=== PATIENT | female | born 1990 | race African-American/Black ===

== ENCOUNTER 2016-10-14 16:36 | Emergency (ER) | payer MEDICAID ==
[~2016-10-14] VITALS: Ht 160 cm; Wt 65.0 kg
[~2016-10-14 16:36] MED LIST: PREN-88 PO
[2016-10-14 23:24] LABS: BASOPHILS % 0.9 % (0.0-2.0); DIFFERENTIAL COMMENT 0; EOSINOPHILS % 2.7 % (0.0-5.0); HEMATOCRIT. 34.4 % (36.0-48.0); HEMOGLOBIN. 10.9 g/dL (12.0-16.0); LYMPHOCYTES % 43.5 % (20.0-50.0); MEAN CORPUSCULAR HEMOGLOBIN 24.1 pg (28.0-32.0); MEAN CORPUSCULAR HGB CONC 31.8 g/dL (31.0-37.0); MEAN PLATELET VOLUME 8.6 fl (7.4-10.4); MONOCYTES % 7.1 % (2.0-8.0); NEUTROPHILS % 45.8 % (40.0-76.0); PLATELET 189 x1000/uL (130-400); RED BLOOD CELL COUNT 4.52 mill/uL (4.2-5.4); RED CELL DISTRIBUTION WIDTH 17.5 % (11.6-14.6); WHITE BLOOD COUNT 6.8 x1000/uL (4.5-11.0)
[2016-10-14 23:32] LABS: INR 1.1; PROTHROMBIN TIME 11.4 sec
[2016-10-14 23:37] LABS: ALANINE AMINOTRANSFERASE 16 IU/L (13-61); ALBUMIN 3.6 g/dL (3.4-5.0); ANION GAP 10; CALCIUM 8.4 mg/dL (8.5-10.1); CARBON DIOXIDE 27 mEq/L (21-32); CHLORIDE 107 mEq/L (98-107); INDEX HEMOLYSI 1 (1-3); INDEX ICTERIC 1 (1-4); INDEX LIPEMIC 1 (1-3); LIPASE 89 IU/L (73-393); UREA NITROGEN BLOOD 10 mg/dL (7-21); eGFR > 60 mL/min (>60)
[2016-10-14 23:47] LABS: CLARITY URINE CLOUDY (CLEAR); COLOR URINE DARK YELLOW (YELLOW); GLUCOSE URINE NEGATIVE (NEGATIVE); KETONES URINE 1+ (NEGATIVE); LEUKOCYTE ESTERASE URINE 1+ (NEGATIVE); NITRITE URINE NEGATIVE (NEGATIVE); OCCULT BLOOD URINE 3+ (NEGATIVE); PH URINE 5.5 (4.5-8.0); PROTEIN URINE 1+ (NEGATIVE); SPECIFIC GRAVITY URINE 1.039 (1.005-1.030)
[2016-10-14] MEDS: ACETAMINOPHEN 325MG TABLET PO STA (23:47)
[2016-10-14] MEDS: MAGNESIUM/ALUMINUM HYDROXIDE/SIMETHICONE 30ML UDC PO STA (23:47)
[2016-10-14] MEDS: ONDANSETRON 4MG ODT PO STA (23:47)
[2016-10-15 00:04] LABS: RBC URINE 50-100 /hpf (0-2); WBC URINE 15-25 /hpf (0-2)
[2016-10-15 00:05] LABS: BACTERIA URINE 2+; SQUAMOUS EPITHELIAL CELL URINE 2+ /lpf (RARE/1+)
[2016-10-15 00:07] LABS: *BARBITURATES SCREEN URINE NEGATIVE (NEGATIVE); *BENZODIAZEPINES SCREEN URINE NEGATIVE (NEGATIVE); *COCAINE SCREEN URINE NEGATIVE (NEGATIVE); ECSTASY MDMA SCREEN URINE NEGATIVE (NEGATIVE); METHADONE URINE SCREEN NEGATIVE (NEGATIVE); OPIATES URINE SCREEN NEGATIVE (NEGATIVE); PHENCYCLIDINE URINE SCREEN NEGATIVE (NEGATIVE)
[2016-10-15 00:27] LABS: *AMPHETAMINES SCREEN URINE PRESUMTIVE POSITIVE (NEGATIVE); CANNABINOID URINE SCREEN PRESUMTIVE POSITIVE (NEGATIVE)
[2016-10-15 00:32] VITALS: BP 117/64
[2016-10-15] MEDS: IBUPROFEN 400MG TABLET PO ONE (00:32)
== END 2016-10-15 00:35 | disposition home or self-care (01) ==
LOC: ER 16:37
DX: N39.0 Urinary tract infection, site not specified (principal); F17.200 Nicotine dependence, unspecified, uncomplicated; F12.10 Cannabis abuse, uncomplicated; Z98.890 Other specified postprocedural states
CPT/HCPCS: 36415; 76830; 76856; 80053; 80305; 81001; 81025; 83690; 85025; 85610; 99285; Q0162; Z7610

== ENCOUNTER 2018-03-27 01:05 | Emergency (ER) | payer MEDICAID ==
[~2018-03-27] VITALS: Ht 160 cm; Wt 63.8 kg
[2018-03-27] MEDS ORDERED: KETOROLAC 60MG/2ML VIAL IM STA (04:44)
[2018-03-27] MEDS ORDERED: TETANUS, DIPHTHERIA, PERTUSSIS VAC/PF 0.5ML (>7YR OLD) IM ONE (04:45)
[2018-03-27 04:48] LABS: CLARITY URINE CLOUDY (CLEAR); COLOR URINE YELLOW (YELLOW); KETONES URINE TRACE (NEGATIVE); LEUKOCYTE ESTERASE URINE 1+ (NEGATIVE); NITRITE URINE NEGATIVE (NEGATIVE); OCCULT BLOOD URINE NEGATIVE (NEGATIVE); PH URINE 5.5 (4.5-8.0); PROTEIN URINE NEGATIVE (NEGATIVE); SPECIFIC GRAVITY URINE 1.026 (1.005-1.030); UROBILINOGEN URINE 0.2 E.U./dL (0.2-1.0)
[2018-03-27] MEDS ORDERED: BACITRACIN ZINC OINT UDPKT TOP ONE (05:00)
[2018-03-27 05:10] VITALS: BP 112/68
== END 2018-03-27 07:57 | disposition home or self-care (01) ==
LOC: ER 07:34
DX: S61.255A Open bite of left ring finger without damage to nail, initial encounter (principal); M54.9 Dorsalgia, unspecified; N39.0 Urinary tract infection, site not specified; Y04.1XXA Assault by human bite, initial encounter; Y93.89 Activity, other specified; Y92.89 Other specified places as the place of occurrence of the external cause; Y99.8 Other external cause status; Z98.890 Other specified postprocedural states
CPT/HCPCS: 72100; 73130; 81003; 81025; 90471; 90715; 96372; 99285; J1885

== ENCOUNTER 2018-04-06 02:44 | Emergency (ER) | payer SELFPAY ==
[~2018-04-06] VITALS: Ht 157.5 cm; Wt 63.0 kg
[2018-04-06 03:13] VITALS: BP 115/77
[2018-04-06] MEDS ORDERED: ACETAMINOPHEN 325MG TABLET PO ONE (09:15)
[2018-04-06] MEDS ORDERED: AMOXICILLIN/POTASSIUM CLAVULANATE 875/125MG TAB PO ONE (09:30)
== END 2018-04-06 09:52 | disposition home or self-care (01) ==
LOC: ER 02:44
DX: M79.645 Pain in left finger(s) (principal); R03.0 Elevated blood-pressure reading, without diagnosis of hypertension; Z98.890 Other specified postprocedural states; W22.03XA Walked into furniture, initial encounter; Y93.89 Activity, other specified; Y92.018 Other place in single-family (private) house as the place of occurrence of the external cause
CPT/HCPCS: 29130; 73140; 81025; 99284

== ENCOUNTER 2018-06-22 00:46 | Emergency (ER) | payer MEDICAID ==
[~2018-06-22] VITALS: Ht 160 cm; Wt 66.8 kg
[2018-06-22] MEDS ORDERED: KETOROLAC 30MG/ML VIAL IV STA (01:25)
[2018-06-22] MEDS ORDERED: ONDANSETRON HCL 4MG/2ML INJ IV STA (01:25)
[2018-06-22] MEDS ORDERED: SODIUM CHLORIDE 0.9% 1000ML BAG (SEPSIS BOLUS) IV ONE (01:30)
[2018-06-22 02:03] LABS: BASOPHILS % 0.6 % (0.0-2.0); EOSINOPHILS % 3.5 % (0.0-5.0); HEMATOCRIT. 33.6 % (36.0-48.0); HEMOGLOBIN. 10.6 g/dL (12.0-16.0); LYMPHOCYTES % 31.6 % (20.0-50.0); MEAN CORPUSCULAR HEMOGLOBIN 24.4 pg (28.0-32.0); MEAN CORPUSCULAR VOLUME 77.5 fL (81.0-99.0); MEAN PLATELET VOLUME 8.8 fl (7.4-10.4); MONOCYTES % 6.5 % (2.0-8.0); NEUTROPHILS % 57.8 % (40.0-76.0); PLATELET 308 x1000/uL (130-400); RED BLOOD CELL COUNT 4.34 mill/uL (4.2-5.4); RED CELL DISTRIBUTION WIDTH 15.4 % (11.6-14.6)
[2018-06-22 02:11] LABS: CHLORIDE 104 mEq/L (98-107)
[2018-06-22 02:12] LABS: PROTHROMBIN TIME 10.1 sec (9.1-11.1)
[2018-06-22 02:23] LABS: CLARITY URINE TURBID (CLEAR); COLOR URINE YELLOW (YELLOW); KETONES URINE TRACE (NEGATIVE); LEUKOCYTE ESTERASE URINE 3+ (NEGATIVE); NITRITE URINE NEGATIVE (NEGATIVE); OCCULT BLOOD URINE NEGATIVE (NEGATIVE); PH URINE 6.5 (4.5-8.0); PROTEIN URINE TRACE (NEGATIVE); SPECIFIC GRAVITY URINE 1.027 (1.005-1.030); UROBILINOGEN URINE 0.2 E.U./dL (0.2-1.0)
[2018-06-22] MEDS: ACETAMINOPHEN 325MG TABLET PO STA ×2 (02:30→05:22)
[2018-06-22] MEDS ORDERED: CEFTRIAXONE 1 G PREMIX 50 ML IV ONE (04:30)
[2018-06-22] MEDS ORDERED: KETOROLAC 15MG/ML VIAL IV ONE (04:30)
[2018-06-22] MEDS ORDERED: CEFTRIAXONE SODIUM 1 G/VIAL IM ONE (04:30)
[2018-06-22 05:21] VITALS: BP 118/82
== END 2018-06-22 05:45 | disposition home or self-care (01) ==
LOC: ER 00:46 → CANBEDREQ 16:26
DX: N39.0 Urinary tract infection, site not specified (principal); J06.9 Acute upper respiratory infection, unspecified; E88.09 Other disorders of plasma-protein metabolism, not elsewhere classified; D50.9 Iron deficiency anemia, unspecified; Z98.890 Other specified postprocedural states
CPT/HCPCS: 36415; 71045; 80053; 81003; 81025; 83605; 83690; 84145; 84484; 85025; 85610; 87040; 87086; 93005; 96361; 96365; 96375; 96376; 99284; J0696; J1885; J2405; J7030; Z7610

== ENCOUNTER 2022-02-11 15:05 | Emergency (ER) | payer MEDICAID ==
[~2022-02-11] VITALS: Ht 162.6 cm; Wt 62.0 kg
[2022-02-11] MEDS ORDERED: LIDOCAINE HCL/EPINEPHRINE 1%-EPI 1:100,000 20 ML VIAL INFIL ONE (17:15)
[2022-02-11] MEDS ORDERED: SULF1TAB48 MT (18:14)
[2022-02-11] MEDS ORDERED: CEPH500C2 MT (18:14)
[2022-02-11] MEDS ORDERED: IBUP-2028 MT (18:14)
[2022-02-11] MEDS ORDERED: IBUPROFEN 400MG TABLET PO ONE (19:15)
[2022-02-11] MEDS ORDERED: HYDROCODONE/ACETAMINOPHEN 5/325MG TABLET PO ONE (21:15)
[2022-02-11 21:30] VITALS: BP 121/69
== END 2022-02-11 23:41 | disposition home or self-care (01) ==
LOC: ER 15:05
DX: N76.4 Abscess of vulva (principal); Z98.890 Other specified postprocedural states
CPT/HCPCS: 10060; 99283; J3490